=== PATIENT | female | born 1940 | race Caucasian/White ===

== ENCOUNTER → 2017-03-26 | Outpatient (CLI) | payer OTHER, MEDICARE ==
[2017-03-26 12:37] LABS: ALT/SGPT 25 U/L (12-78); BLOOD UREA NITROGEN 10 mg/dl (7-18); BUN/CREATININE RATIO 17.7 (10-20); CALCIUM 9.6 mg/dl (8.5-10.1); CARBON DIOXIDE 31 mmol/L (21-32); CHLORIDE 103 mmol/L (98-107); CHOLESTEROL 188 mg/dl (0-200); CREATININE 0.57 mg/dl (0.60-1.20); GLUCOSE,FASTING 79 mg/dl (70-99); POTASSIUM 3.7 mmol/L (3.5-5.1); SODIUM 139 mmol/L (136-145)
[2017-03-26 12:48] LABS: ALKALINE PHOSPHATASE 80 U/L (45-117); AST/SGOT 23 U/L (15-37); HDL CHOLESTEROL 63 mg/dl; LDL CHOLESTEROL CALCULATED 96 mg/dl; TRIGLYCERIDES 146 mg/dl (0-150); VERY LOW DENSITY LIPOPROT CALC 29 mg/dl
== END | disposition home or self-care (01) ==
LOC: C.LABPBG 07:52
PROVIDERS: ATTEND Physician Assistant
DX: Z00.00 Encounter for general adult medical examination without abnormal findings (principal); E03.9 Hypothyroidism, unspecified

== ENCOUNTER → 2018-02-17 | Outpatient (CLI) | payer OTHER, MEDICARE | END | disposition home or self-care (01) | LOC: C.LABPBG 10:17 | PROVIDERS: ATTEND Family Medicine | DX: Z00.00 Encounter for general adult medical examination without abnormal findings (principal); E03.9 Hypothyroidism, unspecified ==

== ENCOUNTER 2022-11-27 13:46 | Observation (INO) ==
[2022-11-27] MEDS ORDERED: SODIUM CHLORIDE 0.9% 500 ML IV STA (14:02)
--- NOTE | 2022-11-27 14:08 | Emergency Department Note ---
Impression & Plan Atrial fibrillation with RVR, Atrial fibrillation, new onset ED Provider Note INFORMANT: Patient ED PROVIDER(S): Delmer Aguillon DO CHIEF COMPLAINT: Palpitations PLAN: Disposition: Admission Outpatient prescription management: [none] Discussion with: I spoke with the hospitalist, who will see the patient for admission/observation and further evaluation and consultation. MEDICAL DECISION MAKING: This is a 82-year-old female who presents to the ED with a chief complaint of palpitations. The patient states that her symptoms started around noon when she was cleaning some exterior wolfe in her home. The patient reports that she also felt short of breath when this occurred. EMS was called shortly after her onset of symptoms. They found her to be in A-fib with RVR. Heart rate was 150. They provided 7.5 mg of IV Cardizem and 325 mg of aspirin p.o. The patient states that her symptoms improved. Upon her arrival, her heart rate is in the low 100s and she states that she is asymptomatic at this time. She continues to be in A-fib. She has seen Dr. Scott in the past but has not required any regular visits since she did not have any significant cardiac issues. The patient otherwise follows with Dr. An. History of breast cancer and colon cancer as well as hypertension. The patient's vital signs are stable. Physical exam reveals irregular heart rate. Lungs are clear. She is in no distress. Abdomen soft nontender. No pedal edema or calf tenderness. Twelve-lead EKG shows A-fib at a rate of 101. No ST elevation. No PVCs. Normal QTc. The patient CBC did not show significant leukocytosis or anemia. Electrolytes were unremarkable. Troponin was mildly elevated at 23. TSH was normal. As the patient was in the ED, the Cardizem provided by EMS wore off and the patient's heart rate increased to 130s and 140s again. She was then treated with 15 mg of IV Lopressor which did not seem to affect the rate much. She was then given 20 mg of IV Cardizem which brought the rate into the 50s and 60s. She briefly was hypotensive with a blood pressure of 84 systolic. This responded quickly to a bolus of IV fluids. The patient will require further monitoring in the hospital and transition to oral meds to control her heart rate. Patient was started on IV heparin standard with bolus. She will be seen by the hospitalist for further evaluation and care Triage Nursing notes reviewed. Vital Signs: reviewed Prior /Outside records reviewed: none Differential diagnosis: Arrhythmia, A-fib, V. tach, PACs, PVCs, SD, other. Diagnostics, as interpreted by me: 12 lead ECG: A-fib at a rate of 101. No ST elevation. No PVCs. Normal QTc Cardiac Monitoring ordered: A-fib rate in the low 100s. No PVCs. Medical decision rules: [id number] Score:3 Imaging studies: Chest x-ray: No acute disease. No pneumonia or pneumothorax. Procedures: none. Critical care: I have personally spent 30 minutes of critical care time in the direct management of this patient. This includes bedside care, interpretation of diagnostic studies, and testing, discussion with consultants, patient, and family members, and other required patient management activities. This 30 minutes is in excess of all separately billable procedures. HPI: See MDM above. PAST MEDICAL HISTORY: See Below PAST SURGICAL HISTORY: See Below SOCIAL HISTORY: See Below HOME MEDICATIONS: See Below ALLERGIES: See Below VITALS: See Below PHYSICAL EXAMINATION: See MDM for positive findings otherwise unremarkable. CONSTITUTIONAL/VITAL SIGNS: Reviewed GENERAL:done as appropriate INTEGUMENTARY: done as appropriate HEAD: done as appropriate EYES: done as appropriate RESPIRATORY: done as appropriate CARDIOVASCULAR:done as appropriate GI/ABDOMEN:done as appropriate EXTREMITIES: done as appropriate NEUROLOGICAL: done as appropriate PSYCHIATRIC:done as appropriate MUSCULOSKELETAL:done as appropriate TRIAGE NURSING DOCUMENTATION REVIEWED. Past Med/Surg History Medical History GERD (gastroesophageal reflux disease) Hypertension Hypothyroidism Monoclonal gammopathy of unknown significance (MGUS) Osteoarthritis of knee Osteopenia Personal history of breast cancer (1991) Personal history of colon cancer (2012) Tinnitus Surgical History History of hysterectomy (2002) History of lumpectomy (1991) Left breast History of mastectomy (06/12/11) Left History of tonsillectomy and adenoidectomy History of varicose vein ligation S/P colectomy (06/21/13) subtotal colectomy w/ ileosigmoid anastomosis d/t colon cancer Family History Mother Family history of cardiac disorder Family history of gallbladder disease Hypertension Father Colon cancer Brother Family history of gallbladder disease Bladder cancer Sister Family history of gallbladder disease Family/Other , age 66 Coronary heart disease Other Breast cancer Denies family history of Ovarian cancer Prostate cancer Myocardial infarction Social History Smoking Status: Never smoker Second Hand Exposure: No; Do You Dip or Chew Tobacco: No; Hx Alcohol Use: Yes Alcohol type: wine Alcohol Intake Frequency: Monthly or Less Alcohol Intake Frequency Comment: 1 glass of wine at [facility] time Hx Substance Use: No Preferred Language: Albanian Communication Ability: Effective Visual Impairment: No Limitations Hearing Ability: Normal Beliefs That Will Affect Care: None marital status: / Current Living Situation: Alone Current Living Situation Comment: LIVES ALONE WITH HELP. current occupational status: retired Feels Safe at Home: Yes Childhood Exposure to Second-Hand Smoke: Yes Diet Comment: regular caffeine: Yes during the past year weight has: remained stable Dental Care, Regularly: Yes Physical Activity Frequency: Daily Seatbelt Use: always Sunscreen Use: Yes Allergies Allergies Allergy/AdvReac Type Severity Reaction Status Date / Time morphine Allergy Intermediate nausea, Verified 09/30/22 12:52 hypotension Home Meds Home Medications Medication Instructions Recorded Confirmed aspirin 81 mg tablet,delayed 81 mg PO DAILY 02/08/19 09/30/22 release latanoprost 0.005 % eye drops 1 drp ophthalmic (eye) DAILY 01/10/21 09/30/22 cetirizine 10 mg capsule (Zyrtec) 10 mg PO DAILY PRN 03/25/21 09/30/22 Previous Rx's Medication Instructions Recorded cholecalciferol (vitamin D3) 25 25 mcg PO DAILY #30 tabs 07/10/21 mcg (1,000 unit) tablet fluticasone propionate 50 2 spray intranasal DAILY PRN 07/10/21 mcg/actuation nasal allergy symptoms #48 grams spray,suspension losartan 50 mg tablet 50 mg PO DAILY #90 tabs 03/06/22 naproxen 500 mg tablet 500 mg PO BID PRN pain #180 tabs 04/03/22 alendronate 70 mg tablet (Fosamax) 70 mg PO WEEKLY #12 tabs 04/24/22 famotidine 40 mg tablet 40 mg PO DAILY #90 tabs 07/22/22 levothyroxine 100 mcg tablet 100 mcg PO DAILY #90 tabs 07/22/22 atenolol 25 mg tablet 25 mg PO DAILY #90 tabs 08/11/22 hydrochlorothiazide 25 mg tablet 25 mg PO DAILY #90 tabs 08/11/22 Results & Data (ED) Vital Signs Vital Signs - 24 hr 11/27/22 13:58 11/27/22 13:58 11/27/22 13:59 Temperature 37 C 37 C Temperature Source Oral Oral Pulse Rate 120 H 116 H Pulse Rate from SpO2 Sensor 112 H Respiratory Rate 15 15 15 Respiratory Effort / Characteristics Non-Labored Spontaneous Respiratory Depth Normal Blood Pressure 151/76 H Blood Pressure Mean 101 Pulse Oximetry 96 97 98 Oxygen Delivery Method Room Air Sepsis Recent Fever Within 48 Hours No Sepsis New/Unexplained Change in Mental Status N/A Sepsis Action Taken by Nursing No Action Required 11/27/22 14:00 11/27/22 14:00 11/27/22 14:15 Temperature Temperature Source Pulse Rate 103 H 100 H Pulse Rate from SpO2 Sensor 108 H 100 H Respiratory Rate 23 17 Respiratory Effort / Characteristics Respiratory Depth Blood Pressure 151/76 H Blood Pressure Mean 101 Pulse Oximetry 97 97 Oxygen Delivery Method Sepsis Recent Fever Within 48 Hours Sepsis New/Unexplained Change in Mental Status Sepsis Action Taken by Nursing 11/27/22 14:30 11/27/22 14:30 11/27/22 14:45 Temperature Temperature Source Pulse Rate 118 H 113 H Pulse Rate from SpO2 Sensor 115 H 112 H Respiratory Rate 19 24 Respiratory Effort / Characteristics Respiratory Depth Blood Pressure 123/82 Blood Pressure Mean 95 Pulse Oximetry 93 97 Oxygen Delivery Method Sepsis Recent Fever Within 48 Hours Sepsis New/Unexplained Change in Mental Status Sepsis Action Taken by Nursing 11/27/22 15:00 11/27/22 15:00 11/27/22 15:27 Temperature Temperature Source Pulse Rate 114 H 126 H Pulse Rate from SpO2 Sensor 104 H Respiratory Rate 20 Respiratory Effort / Characteristics Respiratory Depth Blood Pressure 118/75 Blood Pressure Mean 89 Pulse Oximetry 98 Oxygen Delivery Method Sepsis Recent Fever Within 48 Hours Sepsis New/Unexplained Change in Mental Status Sepsis Action Taken by Nursing 11/27/22 15:30 11/27/22 15:30 11/27/22 15:39 Temperature Temperature Source Pulse Rate 135 H 60 Pulse Rate from SpO2 Sensor 133 H 58 L Respiratory Rate 21 20 Respiratory Effort / Characteristics Respiratory Depth Blood Pressure 127/88 Blood Pressure Mean 101 Pulse Oximetry 97 96 Oxygen Delivery Method Sepsis Recent Fever Within 48 Hours Sepsis New/Unexplained Change in Mental Status Sepsis Action Taken by Nursing 11/27/22 15:39 Temperature Temperature Source Pulse Rate Pulse Rate from SpO2 Sensor Respiratory Rate Respiratory Effort / Characteristics Respiratory Depth Blood Pressure 97/54 L Blood Pressure Mean 68 Pulse Oximetry Oxygen Delivery Method Sepsis Recent Fever Within 48 Hours Sepsis New/Unexplained Change in Mental Status Sepsis Action Taken by Nursing Laboratory Data 11/27/22 13:55 11/27/22 13:55 Lab Results 11/27/22 11/27/22 11/27/22 Range/Units 13:55 13:55 13:55 WBC 11.82 H (4.8-10.8) K/ul RBC 5.06 (4.20-5.40) M/uL Hgb 15.3 (12.0-16.0) g/dl Hct 46.6 (37.0-47.0) % MCV 92.1 (80.0-100.0) fL MCH 30.2 (25.0-34.0) pg MCHC 32.8 (32.0-36.0) g/dL RDW Std Deviation 41.0 (36.4-46.3) fL RDW Coeff of Ellen 12.2 (11.5-14.5) % Plt Count 334 (130-400) K/uL MPV 11.7 (9.4-12.4) fL Immature Gran % (Auto) 1.0 % Neut % (Auto) 71.8 % Lymph % (Auto) 19.8 % [place] % (Auto) 6.9 % Eos % (Auto) 0.2 % Baso % (Auto) 0.3 % Neut # (Auto) 8.49 H (1.40-6.50) K/uL Lymph # (Auto) 2.34 (1.2-3.4) K/uL [place] # (Auto) 0.82 H (0.11-0.59) K/uL Eos # (Auto) 0.02 (0-0.50) K/uL Baso # (Auto) 0.03 (0-0.2) K/uL Immature Gran # (Auto) 0.12 (0.01-0.20) K/uL PT 10.2 (9.0-12.0) Seconds INR 0.9 (0.9-1.1) APTT 24.3 (21.0-31.0) Seconds PTT Ratio 0.9 Sodium 135 L (136-145) mmol/L Potassium 3.7 (3.5-5.1) mmol/L Chloride 104 (98-107) mmol/L Carbon Dioxide 25 (21-32) mmol/L Anion Gap 6 (3-11) BUN 21 (6-23) mg/dl Creatinine 0.62 (0.6-1.2) mg/dl Est Cr Clr Drug Dosing Not Reportable Est GFR ( Amer) 98.0 ml/min Est GFR (Non-Af Amer) 84.6 ml/min BUN/Creatinine Ratio 33.9 H (10-20) Glucose 108 H (70-99(Fasting)) mg/dl Calcium 9.7 (8.6-10.3) mg/dl Magnesium 2.0 (1.7-2.4) mg/dl Total Bilirubin 0.8 (0.2-1.0) mg/dl AST 20 (13-39) U/L ALT 15 (7-52) U/L Alkaline Phosphatase 71 (34-104) U/L Troponin I High Sens 23.0 H (0-14) pg/ml Total Protein 6.5 (6.0-8.3) gm/dl Albumin 3.9 (3.4-5.0) gm/dl Globulin 2.6 (2.5-4.0) gm/dl Albumin/Globulin Ratio 1.5 (0.9-2) TSH (0.300-4.500) uIu/ml SARS-CoV-2, RNA, NAAT (NEGATIVE) 11/27/22 11/27/22 Range/Units 13:55 14:10 WBC (4.8-10.8) K/ul RBC (4.20-5.40) M/uL Hgb (12.0-16.0) g/dl Hct (37.0-47.0) % MCV (80.0-100.0) fL MCH (25.0-34.0) pg MCHC (32.0-36.0) g/dL RDW Std Deviation (36.4-46.3) fL RDW Coeff of Ellen (11.5-14.5) % Plt Count (130-400) K/uL MPV (9.4-12.4) fL Immature Gran % (Auto) % Neut % (Auto) % Lymph % (Auto) % [place] % (Auto) % Eos % (Auto) % Baso % (Auto) % Neut # (Auto) (1.40-6.50) K/uL Lymph # (Auto) (1.2-3.4) K/uL [place] # (Auto) (0.11-0.59) K/uL Eos # (Auto) (0-0.50) K/uL Baso # (Auto) (0-0.2) K/uL Immature Gran # (Auto) (0.01-0.20) K/uL PT (9.0-12.0) Seconds INR (0.9-1.1) APTT (21.0-31.0) Seconds PTT Ratio Sodium (136-145) mmol/L Potassium (3.5-5.1) mmol/L Chloride (98-107) mmol/L Carbon Dioxide (21-32) mmol/L Anion Gap (3-11) BUN (6-23) mg/dl Creatinine (0.6-1.2) mg/dl Est Cr Clr Drug Dosing Est GFR ( Amer) ml/min Est GFR (Non-Af Amer) ml/min BUN/Creatinine Ratio (10-20) Glucose (70-99(Fasting)) mg/dl Calcium (8.6-10.3) mg/dl Magnesium (1.7-2.4) mg/dl Total Bilirubin (0.2-1.0) mg/dl AST (13-39) U/L ALT (7-52) U/L Alkaline Phosphatase (34-104) U/L Troponin I High Sens (0-14) pg/ml Total Protein (6.0-8.3) gm/dl Albumin (3.4-5.0) gm/dl Globulin (2.5-4.0) gm/dl Albumin/Globulin Ratio (0.9-2) TSH 1.949 (0.300-4.500) uIu/ml SARS-CoV-2, RNA, NAAT NEGATIVE (NEGATIVE) Administered Medications Sodium Chloride (Nss 1000ml) 1,000 mls @ 999 mls/hr IV .Q1H1M ONE Stop: 11/27/22 16:43 Last Admin: 11/27/22 16:01 Dose: 999 mls/hr Documented By: LOR Metoprolol Tartrate (Metoprolol Tartrate 1 Mg/Ml Vial) 5 mg IV Q5M PRN PRN Reason: Tachycardia Stop: 12/27/22 14:01 Last Admin: 11/27/22 15:11 Dose: 5 mg Documented By: Admin: 11/27/22 14:59 Dose: 5 mg Documented By: Admin: 11/27/22 14:41 Dose: 5 mg Documented By: LOR Discontinued Medications Diltiazem HCl (Diltiazem Hcl 5 Mg/Ml 5 Ml Vial) 15 mg IV NOW STA Stop: 11/27/22 15:19 Last Admin: 11/27/22 15:30 Dose: 15 mg Documented By: RUBY Co-signed By: ZAFAR Sodium Chloride (Nss) 500 mls @ 999 mls/hr IV .Q31M STA Stop: 11/27/22 14:32 Last Infusion: 11/27/22 14:45 Dose: 0 mls/hr Documented By: Admin: 11/27/22 14:13 Dose: 999 mls/hr Documented By: LOR Imaging Data Radiologist's Impression: Chest X-Ray 11/27/22 14:03 SINGLE VIEW CHEST CLINICAL HISTORY: Dysrhythmia. FINDINGS: An AP, portable, upright chest radiograph is obtained. No prior studies are available for comparison at the time of dictation. The heart appears mildly enlarged noting atherosclerotic calcification of the thoracic aorta. The pulmonary vasculature is noncongested. There is elevation of the left hemidiaphragm with atelectasis of the left lower lung and mild rightward shift of mediastinum. There is no airspace consolidation typical for pneumonia or large pleural effusion. No pneumothorax is seen. The skeletal structures are osteopenic. The bony thorax is grossly intact. Degenerative change is seen throughout the spine. Surgical clips project over the left axilla. IMPRESSION: No acute cardiopulmonary abnormality is identified. ACT 112: Negative or not required by law. Electronically signed by: Christos Doshi M.D. 11/27/2022 2:35 PM Discharge Plan Visit Data Chief Complaint: Cardiac Assessment ED Provider: Delmer Aguillon Discharge Problem: Atrial fibrillation with RVR, Atrial fibrillation, new onset Forms Stand Alone Forms: [facility] Prescriptions Prescriptions: No Action cholecalciferol (vitamin D3) 25 mcg (1,000 unit) tablet 25 mcg PO DAILY Qty: 30 0RF fluticasone propionate 50 mcg/actuation spray,suspension 2 spray intranasal DAILY PRN (Reason: allergy symptoms) Qty: 48 1RF Rx Instructions: administer into each nostril losartan 50 mg tablet 50 mg PO DAILY Qty: 90 3RF naproxen 500 mg tablet 500 mg PO BID PRN (Reason: pain) Qty: 180 1RF alendronate [Fosamax] 70 mg tablet 70 mg PO WEEKLY Qty: 12 3RF famotidine 40 mg tablet 40 mg PO DAILY Qty: 90 2RF levothyroxine 100 mcg tablet 100 mcg PO DAILY Qty: 90 3RF hydrochlorothiazide 25 mg tablet 25 mg PO DAILY Qty: 90 1RF Hold Instructions: hyponatremia 03/15/20 atenolol 25 mg tablet 25 mg PO DAILY Qty: 90 3RF aspirin 81 mg tablet,delayed release (DR/EC) 81 mg PO DAILY latanoprost 0.005 % drops 1 drp ophthalmic (eye) DAILY Patient Comments: 1 drp to affected eye once daily.; Zyrtec 10 mg capsule 10 mg PO DAILY PRN Referrals Referrals: Yesi An DO [Primary Care Provider] -
[2022-11-27 14:21] LABS: Basophils # (auto) 0.03 K/uL (0-0.2); Basophils % (auto) 0.3 %; Eosinophils # (auto) 0.02 K/uL (0-0.50); Eosinophils % (auto) 0.2 %; Hematocrit (blood only) 46.6 % (37.0-47.0); Hemoglobin 15.3 g/dl (12.0-16.0); Immature Granulocytes # (auto) 0.12 K/uL (0.01-0.20); Lymphocytes # (auto) 2.34 K/uL (1.2-3.4); Lymphocytes % (auto) 19.8 %; Mean Corpuscular Hemoglobin 30.2 pg (25.0-34.0); Mean Corpuscular Hgb Conc 32.8 g/dL (32.0-36.0); Mean Corpuscular Volume 92.1 fL (80.0-100.0); Mean Platelet Volume 11.7 fL (9.4-12.4); Monocytes # (auto) 0.82 K/uL (0.11-0.59); Monocytes % (auto) 6.9 %; Neutrophils # (auto) 8.49 K/uL (1.40-6.50); Neutrophils % (auto) 71.8 %; Platelet Count 334 K/uL (130-400); RDW Coefficient of Variation 12.2 % (11.5-14.5); Red Blood Count 5.06 M/uL (4.20-5.40); White Blood Count 11.82 K/ul (4.8-10.8)
--- NOTE | 2022-11-27 14:36 | XRay Report ---
SINGLE VIEW CHEST CLINICAL HISTORY: Dysrhythmia. FINDINGS: An AP, portable, upright chest radiograph is obtained. No prior studies are available for c omparison at the time of dictation. The heart appears mildly enlarged noting atherosclerotic calcific ation of the thoracic aorta. The pulmonary vasculature is noncongested. There is elevation of the lef t hemidiaphragm with atelectasis of the left lower lung and mild rightward shift of mediastinum. Ther e is no airspace consolidation typical for pneumonia or large pleural effusion. No pneumothorax is se en. The skeletal structures are osteopenic. The bony thorax is grossly intact. Degenerative change is seen throughout the spine. Surgical clips project over the left axilla. IMPRESSION: No acute cardiopulmonary abnormality is identified. ACT 112: Negative or not required by law. Electronically signed by: Christos Doshi M.D. 11/27/2022 2:35 PM
[2022-11-27] MEDS: METOPROLOL TARTRATE 1 MG/ML VIAL IV PRN ×3 (14:41→15:11)
[2022-11-27 14:50] LABS: INR 0.9 (0.9-1.1); Partial Thromboplastin Ratio 0.9; Partial Thromboplastin Time 24.3 Seconds (21.0-31.0); Prothrombin Time 10.2 Seconds (9.0-12.0)
[2022-11-27 14:59] LABS: Albumin Level 3.9 gm/dl (3.4-5.0); Anion Gap 6 (3-11); Bilirubin,Total 0.8 mg/dl (0.2-1.0); Calcium 9.7 mg/dl (8.6-10.3); Carbon Dioxide 25 mmol/L (21-32); Chloride 104 mmol/L (98-107); Potassium 3.7 mmol/L (3.5-5.1); Sodium 135 mmol/L (136-145)
[2022-11-27 15:05] LABS: Alanine Aminotransferase 15 U/L (7-52); Albumin Globulin Ratio 1.5 (0.9-2); Alkaline Phosphatase 71 U/L (34-104); Aspartate Aminotransferase 20 U/L (13-39); BUN Creatinine Ratio 33.9 (10-20); Blood Urea Nitrogen 21 mg/dl (6-23); Est GFR (Non-African American) 84.6 ml/min; Globulin 2.6 gm/dl (2.5-4.0); Glucose 108 mg/dl (70-99(Fasting)); Total Protein 6.5 gm/dl (6.0-8.3)
[2022-11-27] MEDS ORDERED: dilTIAZem HCl 5 MG/ML 5 ML VIAL IV STA (15:18)
[2022-11-27] MEDS ORDERED: SODIUM CHLORIDE 0.9% 1000ML 1,000 ML IV ONE (15:43)
[2022-11-27] MEDS ORDERED: Heparin IV Adult Wt-Based Standard WITH Bolus Protocol IV STA (16:06)
[2022-11-27] MEDS ORDERED: HEPARIN SOD (PORCINE) 1000 UNIT/ML IV ONE ×2 (16:22→16:30)
[2022-11-27] MEDS ORDERED: HEPARIN SODIUM/DEXTROSE 25,000 UNITS/500 ML BAG IV SCH (16:30)
--- NOTE | 2022-11-27 18:08 | History & Physical Report ---
Date of Service November 27, 2022 Assessment & Plan (1) Atrial fibrillation with RVR: Plan: Acute/unstable - high risk - 82 yo F with new onset afib w/ rvr - Admit to pcu - Obtain transthoracic echo - Does have a h/o PACs which put her at a higher risk of going into afib - Currently comfortable when rate is controlled with little to no symptoms - HR control will be implemented with Cardizem 30mg QID - if tolerates and rate is well controlled, convert to CD 120mg daily - Mildly elevated HS trop of 23 likely demand ischemia in setting of afib w/ rvr, 2 hour repeat not ordered by ED at time of assessment - Initiate AC with Eliquis 5mg BID, stop Heparin gtt - No indication for cardiology consult at this time (2) Hypertension: Plan: Chronic/stable - Controlled on home Atenolol 25mg, Losartan 50mg, and HCTZ 25mg daily - Hold Atenolol and Losartan as initiating CCB treatment for afib w/ rvr - This will better allow for titration of rate reducing meds - Continue HCTZ 25mg daily (3) Hypothyroidism: Plan: Chronic/stable - Reviewed TSH, normal at 1.949 - Continue Levothyroxine 100mcg daily (4) GERD (gastroesophageal reflux disease): Plan: Chronic/stable - Continue Pepcid 40mg daily Plan Plan as outlined above. Repeat labs ordered for tomorrow. Above has been d/w Dr. Velasquez who will also see and evaluate this patient. Further orders will be implemented as warranted. History of Present Illness Chief Complaint: "cardiac assessment" Primary Care Provider: DO Thu Huntley Carlos is an 82 yo F with a pmhx of hypothyroidism, HTN, GERD, as well as h/o breast cancer x2 and colon ca who presented to the ER today via EMS for a cardiac assessment due to palpitations. Patient reports that she was outside cleaning her siding when she developed acute onset palpitations which was associated with dyspnea. She states that she has never experienced anything like this in the past, has no prior h/o afib or AK. She did note that her mother had afib. Upon EMS arrival, patient was noted to be in atrial fibrillation with a rate in the 150s. She was medicated pre hospital with IV Cardizem. Despite that, upon arrival, she was still in the 120s. ED ordered a dose of IV Lopressor 5mg x1 followed about an hour later by a second dose of IV Cardizem 15mg x1. Shortly after the dose of IV Cardizem was given, pt became bradycardic and hypotensive. She was bolused with NSS x 2L and systolic BP improved to 135 systolic. ED also initiated IV Heparin infusion. Her laboratory w/u is essentially unremarkable, magnesium level was normal at 2, potassium normal, and TSH within normal limits. She is currently resting comfortably in bed, accompanied by daughter and granddaughter. She has no cp, dyspnea, palpitations at present. No recent illnesses or medication changes. She has been referred to the hospitalist service for admission. Allergies Allergy/AdvReac Type Severity Reaction Status Date / Time morphine Allergy Intermediate nausea, Verified 11/27/22 16:21 hypotension Home Medications Medication Instructions Recorded Confirmed Type aspirin 81 mg tablet,delayed 81 mg PO 3XWK 02/08/19 11/27/22 History release latanoprost 0.005 % eye drops 1 drp ophthalmic (eye) DAILY 01/10/21 11/27/22 History cetirizine 10 mg capsule (Zyrtec) 10 mg PO DAILY PRN Congestion 03/25/21 11/27/22 History fluticasone propionate 50 2 spray intranasal DAILY PRN 07/10/21 11/27/22 Rx mcg/actuation nasal allergy symptoms #48 grams spray,suspension losartan 50 mg tablet 50 mg PO DAILY #90 tabs 03/06/22 11/27/22 Rx naproxen 500 mg tablet 500 mg PO BID PRN pain #180 tabs 04/03/22 11/27/22 Rx famotidine 40 mg tablet 40 mg PO DAILY #90 tabs 07/22/22 11/27/22 Rx levothyroxine 100 mcg tablet 100 mcg PO DAILY #90 tabs 07/22/22 11/27/22 Rx atenolol 25 mg tablet 25 mg PO DAILY #90 tabs 08/11/22 11/27/22 Rx hydrochlorothiazide 25 mg tablet 25 mg PO DAILY #90 tabs 08/11/22 11/27/22 Rx alendronate 70 mg tablet (Fosamax) 70 mg PO WK 11/27/22 11/27/22 History cholecalciferol (vitamin D3) 25 50 mcg PO DAILY 11/27/22 11/27/22 History mcg (1,000 unit) tablet Past Med/Surg History Medical History GERD (gastroesophageal reflux disease) Hypertension Hypothyroidism Monoclonal gammopathy of unknown significance (MGUS) Osteoarthritis of knee Osteopenia Personal history of breast cancer (1991) Personal history of colon cancer (2012) Tinnitus Surgical History History of hysterectomy (2002) History of lumpectomy (1991) Left breast History of mastectomy (06/12/11) Left History of tonsillectomy and adenoidectomy History of varicose vein ligation S/P colectomy (06/21/13) subtotal colectomy w/ ileosigmoid anastomosis d/t colon cancer Family History Mother Family history of cardiac disorder Family history of gallbladder disease Hypertension Father Colon cancer Brother Family history of gallbladder disease Bladder cancer Sister Family history of gallbladder disease Family/Other , age 66 Coronary heart disease Other Breast cancer Denies family history of Ovarian cancer Prostate cancer Myocardial infarction Social History Smoking Status: Never smoker Second Hand Exposure: No; Do You Dip or Chew Tobacco: No; Hx Alcohol Use: Yes Alcohol type: wine Alcohol Intake Frequency: Monthly or Less Alcohol Intake Frequency Comment: 1 glass of wine at [facility] time Hx Substance Use: No Preferred Language: German Communication Ability: Effective Visual Impairment: No Limitations Hearing Ability: Normal Clerk Cashier Required: No Beliefs That Will Affect Care: None marital status: / Current Living Situation: Alone Current Living Situation Comment: LIVES ALONE WITH HELP. current occupational status: retired Other Information That Helps Us Care for You: No Feels Safe at Home: Yes Safety Concerns: Feels Safe At This Time Childhood Exposure to Second-Hand Smoke: Yes Diet Comment: regular caffeine: Yes during the past year weight has: remained stable Dental Care, Regularly: Yes Physical Activity Frequency: Daily Seatbelt Use: always Sunscreen Use: Yes Assistive Devices: Glasses Physical Exam Physical Exam: GENERAL: 82 yo well-developed, well-nourished elderly WF. NAD. LUNGS: Clear to auscultation bilaterally. No accessory muscle use. No W/R/R. CARDIOVASCULAR: S1 S2 irregular rhythm with variable rate, no appreciable m/g/r EXTREMITIES: No edema. Non-tender. Peripheral pulses +2/4. Results & Data Results & Data Vital Signs (Past 12 Hours) Vital Signs Temp Pulse Resp BP Pulse Ox O2 Del Method 11/27/22 16:00 60 16 97 11/27/22 16:00 108/74 11/27/22 15:56 91/59 L 11/27/22 15:55 63 19 97 11/27/22 15:45 61 20 97 11/27/22 15:45 87/59 L 11/27/22 15:39 97/54 L 11/27/22 15:39 60 20 96 11/27/22 15:30 135 H 21 97 11/27/22 15:30 127/88 11/27/22 15:27 126 H 11/27/22 15:00 114 H 20 98 11/27/22 15:00 118/75 11/27/22 14:45 113 H 24 97 11/27/22 14:30 118 H 19 93 11/27/22 14:30 123/82 11/27/22 14:15 100 H 17 97 11/27/22 14:00 103 H 23 97 11/27/22 14:00 151/76 H 11/27/22 13:59 116 H 15 98 11/27/22 13:58 37 C 15 97 11/27/22 13:58 37 C 120 H 15 151/76 H 96 Room Air Laboratory Results 11/27/22 13:55 11/27/22 13:55 Diagnostic Findings Chest X-Ray 11/27/22 14:03 SINGLE VIEW CHEST CLINICAL HISTORY: Dysrhythmia. FINDINGS: An AP, portable, upright chest radiograph is obtained. No prior studies are available for comparison at the time of dictation. The heart appears mildly enlarged noting atherosclerotic calcification of the thoracic aorta. The pulmonary vasculature is noncongested. There is elevation of the left hemidiaphr agm with atelectasis of the left lower lung and mild rightward shift of mediastinum. There is no airspace consolidation typical for pneumonia or large pleural effusion. No pneumothorax is seen. The skeletal structures are osteopenic. The bony thorax is grossly intact. Degenerative change is seen thr oughout the spine. Surgical clips project over the left axilla. IMPRESSION: No acute cardiopulmonary abnormality is identified. ACT 112: Negative or not required by law. Electronically signed by: Christos Doshi M.D. 11/27/2022 2:35 PM Code Status & VTE Plan Code Status discussed with patient - full code Supervising Physician Co-Signing Physician Notes Patient seen and examined, chart reviewed, case discussed with Mary Kraus PA-C and I agree with the assessment and plan as above except as otherwise noted Labs and images reviewed Thu is an 82-year-old female with a past medical history of breast cancer, colon cancer, GERD, hypertension, hypothyroid who presented with palpitations. Had associated shortness of breath, no prior history of AK. Was in A-fib RVR on admission to the ER, this is her primary presentation with A-fib. Did improve with Cardizem/Lopressor but with hypotensive response subsequently improved fo llowing 2 L NSS. She does not have a history of reduced ejection fraction. At time of bedside reevaluation pulse is regular with heart rate 5560. She has converted to normal sinus rhythm on monitor at approximately 8:50 PM. She reports that she noticed a distinct improvement in her symptoms including fatigue and palpitations that coincides with this timing. Growth assessment and management above. Reasonable to target Cardizem adjunct for maintenance versus beta-shayy up titration for maintenance, patient is very active and with some concern for exercise limitation. Is aware that regardless of choice will need continued follow-up with cardiology for medication adjustments and monitoring of rate and blood pressure. PG Care Time/CCT Total # of Minutes Spent Total Time Spent with Patient: Total time spent is greater than 50% in coordination of care (as documented) at patient's floor/unit and/or counseling patient: Coding Level of Care Code 10687 INT INP/OBS CARE MIN Diagnoses Atrial fibrillation with RVR I48.91 Hypertension I10 Hypothyroidism E03.9 GERD (gastroesophageal reflux disease) K21.9
[2022-11-27] MEDS ORDERED: ACETAMINOPHEN 325 MG TAB PO PRN (19:13)
[2022-11-27] MEDS ORDERED: ONDANSETRON INJ 2 MG/ML 2 ML VIAL IV PRN (19:13)
[2022-11-27] MEDS ORDERED: MAGNESIUM HYDROXIDE SUSP 30 ML UDC PO PRN (19:13)
[2022-11-27] MEDS ORDERED: POLYETHYLENE (MIRALAX) 17 GM PACK PO PRN (19:13)
[2022-11-27] MEDS ORDERED: ALUMINUM/MAGNESIUM SUSP 30 ML UDC PO PRN (19:13)
[2022-11-27] MEDS: dilTIAZem HCL 30 MG TAB PO SCH ×2 (20:08→20:20)
[2022-11-27] MEDS: APIXABAN 5 MG TABLET PO SCH (20:08)
--- NOTE | 2022-11-28 05:19 | Electrocardiogram Report ---
Test Reason : Blood Pressure : / mmHG Vent. Rate : 101 BPM Atrial Rate : 074 BPM P-R Int : 000 ms QRS Dur : 090 ms QT Int : 354 ms P-R-T Axes : 000 059 041 degrees QTc Int : 459 ms Atrial fibrillation with rapid ventricular response Abnormal ECG No previous ECGs available Confirmed by Jason Smith ([id number]) on 11/28/2022 5:18:50 AM Referred By: REFERRED SELF Confirmed By:Jason Smith
[2022-11-28 06:27] LABS: Basophils # (auto) 0.01 K/uL (0-0.2); Basophils % (auto) 0.2 %; Hematocrit (blood only) 38.7 % (37.0-47.0); Hemoglobin 12.9 g/dl (12.0-16.0); Immature Granulocytes # (auto) 0.07 K/uL (0.01-0.20); Immature Granulocytes % (auto) 1.1 %; Lymphocytes # (auto) 1.11 K/uL (1.2-3.4); Lymphocytes % (auto) 17.6 %; Mean Corpuscular Hemoglobin 30.6 pg (25.0-34.0); Mean Corpuscular Hgb Conc 33.3 g/dL (32.0-36.0); Mean Corpuscular Volume 91.9 fL (80.0-100.0); Mean Platelet Volume 11.1 fL (9.4-12.4); Monocytes # (auto) 0.41 K/uL (0.11-0.59); Monocytes % (auto) 6.5 %; Neutrophils # (auto) 4.69 K/uL (1.40-6.50); Neutrophils % (auto) 74.6 %; Platelet Count 211 K/uL (130-400); RDW Coefficient of Variation 12.4 % (11.5-14.5); RDW Standard Deviation 41.1 fL (36.4-46.3); Red Blood Count 4.21 M/uL (4.20-5.40); White Blood Count 6.29 K/ul (4.8-10.8)
[2022-11-28] MEDS ORDERED: LEVOTHYROXINE SODIUM 100 MCG TABLET PO SCH (06:30)
[2022-11-28 06:48] LABS: Calcium 9.4 mg/dl (8.6-10.3); Creatinine Clr Calc Pharmacy 65.9 ml/min; Est GFR (African American) 103.9 ml/min; Est GFR (Non-African American) 89.6 ml/min; Magnesium 2.1 mg/dl (1.7-2.4); Potassium 4.8 mmol/L (3.5-5.1)
[2022-11-28] MEDS: APIXABAN 5 MG TABLET PO SCH (08:47)
[2022-11-28] MEDS: dilTIAZem HCL 30 MG TAB PO SCH (08:48)
[2022-11-28] MEDS ORDERED: hydroCHLOROthiazide 25 MG TAB PO SCH (09:00)
[2022-11-28] MEDS ORDERED: ASPIRIN 81 MG ECTAB PO SCH (09:00)
[2022-11-28] MEDS ORDERED: FAMOTIDINE 40 MG TABLET PO SCH (09:00)
[2022-11-28] MEDS ORDERED: LATANOPROST 0.005% OP SOLN 2.5 ML BTL OP SCH (09:00)
--- NOTE | 2022-11-28 09:09 | Hospitalist Progress Note ---
Date of Service November 28, 2022 Assessment & Plan (1) Atrial fibrillation with RVR: Plan: Acute/unstable - high risk - 82 yo F with new onset afib w/ rvr - Obtain transthoracic echo - HR control will be implemented with Cardizem 30mg QID - if tolerates and rate is well controlled, convert to CD 120mg daily - Mildly elevated HS trop of 23 likely demand ischemia in setting of afib w/ rvr, 2 hour repeat not ordered by ED at time of assessment - Initiate AC with Eliquis 5mg BID, stop Heparin gtt - (2) Hypertension: Plan: Chronic/stable - Controlled on home Atenolol 25mg, Losartan 50mg, and HCTZ 25mg daily - Hold Atenolol and Losartan as initiating CCB treatment for afib w/ rvr - This will better allow for titration of rate reducing meds - Continue HCTZ 25mg daily (3) Hypothyroidism: Plan: Chronic/stable - Reviewed TSH, normal at 1.949 - Continue Levothyroxine 100mcg daily (4) GERD (gastroesophageal reflux disease): Plan: Chronic/stable - Continue Pepcid 40mg daily Plan Plan as outlined above. Repeat labs ordered for tomorrow. Above has been d/w Dr. Velasquez who will also see and evaluate this patient. Further orders will be implemented as warranted. Admission and Anticipated Discharge Date Admission Date: November 27, 2022 Results & Data Results & Data Vital Signs (Past 12 Hours) Vital Signs Temp Pulse Pulse Resp BP Pulse Ox O2 Del Method 11/28/22 07:32 98.2 F 53 L 18 116/51 L 97 Room Air 11/28/22 04:43 98.1 F 56 L 19 121/57 L 97 Room Air 11/27/22 22:00 58 L 11/27/22 23:44 98.1 F 53 L 20 115/58 L 97 Room Air PG Care Time/CCT Total # of Minutes Spent Total Time Spent with Patient: Total time spent is greater than 50% in coordination of care (as documented) at patient's floor/unit and/or counseling patient: Coding Diagnoses Atrial fibrillation with RVR I48.91 Hypertension I10 Hypothyroidism E03.9 GERD (gastroesophageal reflux disease) K21.9
--- NOTE | 2022-11-28 10:04 | XCELERA ---
[id number] [id number]
[2022-11-28] MEDS ORDERED: dilTIAZem HCL 120 MG CAPCR PO ONE (11:59)
--- NOTE | 2022-11-28 12:56 | Communication Note ---
Date of Service: November 28, 2022 By CMS guidelines, a determination that the admission or continued stay is not medically necessary has been made by a member of the UR committee and a phys ician for this hospital stay, therefore a Code 44 will be completed and the Inpatient admission will be changed to outpatient. Mio Munson MD Member - Utilization Review Committee
--- NOTE | 2022-11-28 17:39 | Discharge Summary ---
Date of Service November 28, 2022 Admission HPI Per Admitting Provider Thu Gonzalez is an 82 yo F with a pmhx of hypothyroidism, HTN, GERD, as well as h/o breast cancer x2 and colon ca who presented to the ER today via EMS for a cardiac assessment due to palpitations. Patient reports that she was outside cleaning her siding when she developed acute onset palpitations which was associated with dyspnea. She states that she has never experienced anything like this in the past, has no prior h/o afib or IA. She did note that her mother had afib. Upon EMS arrival, patient was noted to be in atrial fibrillation with a rate in the 150s. She was medicated pre hospital with IV Cardizem. Despite that, upon arrival, she was still in the 120s. ED ordered a dose of IV Lopressor 5mg x1 followed about an hour later by a second dose of IV Cardizem 15mg x1. Shortly after the dose of IV Cardizem was given, pt became bradycardic and hypotensive. She was bolused with NSS x 2L and systolic BP improved to 135 systolic. ED also initiated IV Heparin infusion. Her laboratory w/u is essentially unremarkable, magnesium level was normal at 2, potassium normal, and TSH within normal limits. She is currently resting comfortably in bed, accompanied by daughter and granddaughter. She has no cp, dyspnea, palpitations at present. No recent illnesses or medication changes. She has been referred to the hospitalist service for admission. Principal Diagnosis Atrial Fibrillation, conversation to NSR Discharge Exam pt was seen with family cardiac exam is regular lungs are clear Discharge Data Allergies Allergy/AdvReac Type Severity Reaction Status Date / Time morphine Allergy Intermediate nausea, Verified 11/27/22 16:21 hypotension Consultations 11/27/22 16:04 ED Decision to Admit Stat Hospital Course (1) Atrial fibrillation with RVR: Acute/unstable - high risk - 82 yo F with new onset afib w/ rvr - transthoracic echo with preserved EF no significant RWMA or valvular heart disease - HR control will be implemented with Cardizem 30mg QID - given CD 120 day of discharge on sent home on 180 mg, holding other antihyperensives - Mildly elevated HS trop due to demand ischemia in setting of afib w/ rvr, - Initiate AC with Eliquis 5mg BID, send home on antibiotic (2) Hypertension: Chronic/stable -will continue hydrochlorothiazide and diltiazem 180 mg (3) Hypothyroidism: Chronic/stable - Reviewed TSH, normal at 1.949 - Continue Levothyroxine 100mcg daily (4) GERD (gastroesophageal reflux disease): Chronic/stable - Continue Pepcid 40mg daily Total Time Total Time Spent Total Time Spent (In Minutes): It required greater than 30 minutes to prepare this patient for discharge Discharge Plan Discharge Items Patient Disposition: Home - Self-Care Reason For Visit: NEW ONSET AFIB W/ RVR Discharge Diagnosis: atrial fibrillation Activity: Per Instructions section Non-emergency contact: Primary Care Provider Call non-emergency contact if: your symptoms worsen Follow-up/Referrals: Yesi An DO [Primary Care Provider] - 12/02/22 10:40 am (Will see MACIE You) Diet: Regular Addtl Attending Provider Instructions: Medication Instructions: Your condition is typically treated with an anticoagulant. Anticoagulants will thin your blood to help prevent new clots. * You should take her medication exactly as directed. * Never skip a dose. * Never take a double dose. If you miss a dose, take it as soon as you remember. Call your Primary Care doctor if you experience any of the following: * Swelling or Pain in your leg * Sudden, continuous pain deep in a muscle * Pain that worsens when you are active or when you stand still for a long time * Chest Pain * Sudden Shortness of Breath * Rapid or pounding heart beat * Fainting * Dizziness * Cough with blood or bloody sputum * Sweating more than normal * Bruises * Heavy or uncontrolled bleeding * Blood in your urine, stool or vomit * Black or tarry stools Caring for Your Self at Home: * Avoid sitting, standing or lying down for long periods without moving your legs and feet * When traveling by car, stop to get out and move around at least once every 3 hours * On long airplane, train or bus rides, get up and move around when possible * If you can't get up, wiggle your toes and tighten your calves to keep your blood moving Follow Up: It is important for you to keep your follow up appointments with your medical provider. Pending Studies at Discharge: No Stand-Alone Forms: My [facility] [employer], Smoking Cessation Medications and DC Order Prescriptions: New Eliquis 5 mg Tablet 5 mg PO BID Qty: 60 5RF diltiazem HCl 180 mg capsule,extended release 24hr 180 mg PO DAILY Qty: 30 5RF Continued fluticasone propionate 50 mcg/actuation spray,suspension 2 spray intranasal DAILY PRN (Reason: allergy symptoms) Qty: 48 1RF Rx Instructions: administer into each nostril famotidine 40 mg tablet 40 mg PO DAILY Qty: 90 2RF levothyroxine 100 mcg tablet 100 mcg PO DAILY Qty: 90 3RF hydrochlorothiazide 25 mg tablet 25 mg PO DAILY Qty: 90 1RF Hold Instructions: hyponatremia 03/15/20 aspirin 81 mg tablet,delayed release (DR/EC) 81 mg PO 3XWK Rx Instructions: THU, THU, & THU. latanoprost 0.005 % drops 1 drp ophthalmic (eye) DAILY Patient Comments: 1 drp to affected eye once daily.; Zyrtec 10 mg capsule 10 mg PO DAILY PRN (Reason: Congestion) alendronate [Fosamax] 70 mg tablet 70 mg PO WK Rx Instructions: SUNDAYS cholecalciferol (vitamin D3) 25 mcg (1,000 unit) tablet 50 mcg PO DAILY Discontinued losartan 50 mg tablet 50 mg PO DAILY Qty: 90 3RF naproxen 500 mg tablet 500 mg PO BID PRN (Reason: pain) Qty: 180 1RF atenolol 25 mg tablet 25 mg PO DAILY Qty: 90 3RF Discharge Orders: Discharge Order (Routine); Ordered 11/28/22 Ordered By: Kyaw Dela Cruz Admission Data Admit Date/Time: 11/27/22 17:37 Attending Provider: Kyaw Dela Cruz Admit Provider: Kev Velasquez Primary Care Provider: Yesi An Other Providers: Kev Velasquez Other Interventions: Discharge Summary Assessment (RN) Last Done: 11/28/22 14:46 Coding Level of Care Code 21968 INP/OBS DISCH >30 MIN Diagnoses Atrial fibrillation with RVR I48.91 Hypertension I10 Hypothyroidism E03.9 GERD (gastroesophageal reflux disease) K21.9
== END 2022-11-28 15:30 | disposition home or self-care (01) ==
LOC: ED 13:46 → 4W 17:37 → INTOOBSV 17:37 → SUATTDRO 17:37 → 4W 18:37